=== PATIENT | male | born 1955 | race Two or more races ===

== ENCOUNTER 2016-08-18 15:22 | Inpatient (IN) | payer MEDICAID ==
[~2016-08-18] VITALS: Ht 185.4 cm; Wt 93.7 kg
[2016-08-18 16:35] LABS: Basophils # (auto) 0 uL; Basophils % (auto) 0.5 % (0.0-2.0); CONDITION Y; DEFINITIVE SEE PRINTOUT; Eosinophils # (auto) 0.1 uL; Eosinophils % (auto) 0.5 % (0.0-7.0); Hematocrit 54.2 % (41.0-53.0); Hemoglobin 18.4 g/dL (13.5-17.5); Lymphocytes # (auto) 1.5 uL; Lymphocytes % (auto) 14.9 % (10.0-50.0); Mean Corpuscular Hemoglobin 29.5 pg (28.0-32.0); Mean Corpuscular Volume 86.7 fL (80.0-100.0); Monocytes # (auto) 0.5 uL; Monocytes % (auto) 4.9 % (0.0-12.0); Neutrophils # (auto) 7.9 uL; Neutrophils % (auto) 79.2 % (37.0-80.0); Platelet Count (auto) 212 10^3/uL (140-450); Red Cell Distribution Width 13.9 % (11.6-16.0); White Blood Cell 9.9 10^3/uL (4.4-10.8)
[2016-08-18 16:48] LABS: Albumin 3.8 g/dL (3.4-5.0); BUN/Creatinine Ratio 13.1; Calcium 8.4 mg/dL (8.5-10.1)
[2016-08-18 16:53] LABS: Bilirubin, Total 0.8 mg/dL (0.2-1.0); Total Protein 7.9 g/dL (6.4-8.2)
[2016-08-18] MEDS ORDERED: ONDANSETRON HCL 4 MG/2 ML VIAL IV ONE (17:15)
[2016-08-18] MEDS ORDERED: METOPROLOL TARTRATE 25 MG TAB PO ONE (17:15)
[2016-08-18] MEDS: NICARDIPINE 25MG/250ML BAG KIT 250 ML IV SCH ×2 (17:15→19:02)
[2016-08-18] MEDS ORDERED: MORPHINE SULF INJ 2 MG/ML SYRINGE 1ML IV PRN ×2 (19:15)
[2016-08-18] MEDS ORDERED: ONDANSETRON HCL 4 MG/2 ML VIAL IV PRN (19:15)
[2016-08-18] MEDS ORDERED: NITROGLYCERIN 0.4 MG SL TAB SL PRN ×2 (19:15)
[2016-08-18] MEDS ORDERED: LORazepam 0.5 MG TAB PO PRN (19:15)
[2016-08-18] MEDS ORDERED: ACETAMINOPHEN 325 MG TAB PO PRN (19:15)
[2016-08-18] MEDS ORDERED: ALUM & MAG HYDROX-SIMETH LIQ(MAALOX) 30 ML PO ONE (19:15)
[2016-08-18] MEDS ORDERED: ZOLPIDEM TARTRATE 5 MG TAB PO PRN (19:15)
[2016-08-18 19:57] LABS: B-Type Natriuretic Peptide 139.24 pg/mL (0-100)
[2016-08-18 20:07] LABS: Temperature: 23.7 C (20.0-25.0)
[2016-08-18] MEDS ORDERED: SODIUM CHLOR 0.9% PF (SALINE LOCK) 10ML VIAL IV SCH (22:00)
[2016-08-18] MEDS: SODIUM CHLOR 0.9% PF (SALINE LOCK) 10ML VIAL IV SCH (22:02)
[2016-08-18 22:28] LABS: Urine Bilirubin Negative (Negative); Urine Color Yellow (Yellow); Urine Glucose Normal (Normal); Urine Ketone Negative (Negative); Urine Mucus FEW (None Seen); Urine Nitrite Negative (Negative); Urine RBC 8 /hpf (0 - 3); Urine Squamous Epithelial Cell FEW /hpf (<5); Urine Urobilinogen Normal (Negative); Urine pH 5.5 (5.0-8.0)
[2016-08-18] MEDS: CARVEDILOL 3.125 MG TAB PO SCH (22:29)
[2016-08-18] MEDS: ENALAPRIL MALEATE 2.5 MG TAB PO SCH (22:30)
[2016-08-18] MEDS: ATORVASTATIN 20 MG TAB PO SCH (22:30)
[2016-08-18 22:32] LABS: Urine Blood 1+ /uL (Negative)
[2016-08-19] MEDS: NICARDIPINE 25MG/250ML BAG KIT 250 ML IV SCH (03:15)
[2016-08-19] MEDS: SODIUM CHLOR 0.9% PF (SALINE LOCK) 10ML VIAL IV SCH ×3 (06:01→21:28)
[2016-08-19 06:58] LABS: Basophils # (auto) 0 uL; Basophils % (auto) 0.2 % (0.0-2.0); CONDITION Y; Eosinophils # (auto) 0.1 uL; Eosinophils % (auto) 0.5 % (0.0-7.0); Hematocrit 49.7 % (41.0-53.0); Lymphocytes # (auto) 1.8 uL; Lymphocytes % (auto) 15.9 % (10.0-50.0); Mean Corpuscular Hemoglobin 29.7 pg (28.0-32.0); Mean Corpuscular Hgb Conc. 34.2 g/dL (32.0-36.0); Mean Platelet Volume 7.9 fL (7.4-10.4); Monocytes # (auto) 0.6 uL; Neutrophils # (auto) 8.9 uL; Neutrophils % (auto) 78.4 % (37.0-80.0); Platelet Count (auto) 244 10^3/uL (140-450); Red Cell Distribution Width 14.4 % (11.6-16.0); White Blood Cell 11.3 10^3/uL (4.4-10.8)
[2016-08-19 07:21] LABS: Albumin 3.2 g/dL (3.4-5.0); BUN/Creatinine Ratio 21.7; Bilirubin, Total 0.9 mg/dL (0.2-1.0); Calcium 8.5 mg/dL (8.5-10.1); Magnesium 2.8 mg/dL (1.6-2.6); Potassium 4.1 mmol/L (3.5-5.1); Total Protein 6.7 g/dL (6.4-8.2)
[2016-08-19] MEDS ORDERED: cefTRIAXone 1GM/50ML D5W 50 ML IV ONE (08:00)
[2016-08-19 09:07] VITALS: BP 153/95
[2016-08-19] MEDS ORDERED: CLOPIDOGREL BISULFATE 75 MG TAB PO SCH (10:00)
[2016-08-19] MEDS: ASPirin 81 mg TAB PO SCH (10:00)
[2016-08-19] MEDS: CARVEDILOL 3.125 MG TAB PO SCH ×2 (10:00→21:29)
[2016-08-19] MEDS: ENALAPRIL MALEATE 2.5 MG TAB PO SCH ×2 (10:00→21:30)
[2016-08-19] MEDS: DOCUSATE SOD 100 MG CAP PO SCH (10:00)
[2016-08-19 14:58] VITALS: BP 165/112
[2016-08-19 17:30] VITALS: BP 142/92
[2016-08-19 20:00] VITALS: BP 139/84
[2016-08-19] MEDS: ATORVASTATIN 20 MG TAB PO SCH (21:29)
[2016-08-19 22:00] VITALS: BP 139/84
[2016-08-20 05:00] VITALS: BP 141/92
[2016-08-20 05:32] LABS: Basophils # (auto) 0.1 uL; Basophils % (auto) 0.5 % (0.0-2.0); CONDITION Y; Eosinophils # (auto) 0.1 uL; Eosinophils % (auto) 1.1 % (0.0-7.0); Hematocrit 48.8 % (41.0-53.0); Hemoglobin 16.4 g/dL (13.5-17.5); Lymphocytes # (auto) 2.6 uL; Lymphocytes % (auto) 24.4 % (10.0-50.0); Mean Corpuscular Hemoglobin 29.6 pg (28.0-32.0); Mean Corpuscular Hgb Conc. 33.7 g/dL (32.0-36.0); Mean Corpuscular Volume 87.8 fL (80.0-100.0); Mean Platelet Volume 8.1 fL (7.4-10.4); Monocytes # (auto) 0.5 uL; Monocytes % (auto) 5.1 % (0.0-12.0); Neutrophils # (auto) 7.3 uL; Neutrophils % (auto) 68.9 % (37.0-80.0); Platelet Count (auto) 198 10^3/uL (140-450); Red Cell Distribution Width 14.1 % (11.6-16.0); White Blood Cell 10.6 10^3/uL (4.4-10.8)
[2016-08-20 05:53] LABS: BUN/Creatinine Ratio 24.5; Calcium 8.1 mg/dL (8.5-10.1); Potassium 3.9 mmol/L (3.5-5.1)
[2016-08-20] MEDS: SODIUM CHLOR 0.9% PF (SALINE LOCK) 10ML VIAL IV SCH ×3 (06:00→21:49)
[2016-08-20 08:00] VITALS: BP 137/85
[2016-08-20] MEDS: cefTRIAXone 1GM/50ML D5W 50 ML IV SCH (09:42)
[2016-08-20] MEDS: ENALAPRIL MALEATE 2.5 MG TAB PO SCH (09:43)
[2016-08-20] MEDS: ASPirin 81 mg TAB PO SCH (09:44)
[2016-08-20] MEDS: DOCUSATE SOD 100 MG CAP PO SCH (09:44)
[2016-08-20] MEDS: CARVEDILOL 3.125 MG TAB PO SCH ×2 (09:47→21:47)
[2016-08-20 10:06] VITALS: BP 137/85
[2016-08-20 15:48] LABS: Urine Bilirubin Negative (Negative); Urine Blood TRACE /uL (Negative); Urine Color Yellow (Yellow); Urine Glucose Normal (Normal); Urine Ketone Negative (Negative); Urine Nitrite Negative (Negative); Urine RBC 22 /hpf (0 - 3); Urine Squamous Epithelial Cell FEW /hpf (<5); Urine Urobilinogen Normal (Negative)
[2016-08-20] MEDS ORDERED: LISINOPRIL 20 MG TAB PO ONE (17:15)
[2016-08-20 17:38] VITALS: BP 187/124
[2016-08-20] MEDS ORDERED: hydrALAZINE HCL 20 MG/ML VL IV PRN (19:15)
[2016-08-20] MEDS: amLODIPine BESYLATE 5 MG TAB PO SCH (19:30)
[2016-08-20 20:00] VITALS: BP 173/115
[2016-08-20] MEDS: ATORVASTATIN 20 MG TAB PO SCH (21:48)
[2016-08-20 22:00] VITALS: BP 173/115
[2016-08-21 05:00] VITALS: BP 148/103
[2016-08-21] MEDS: SODIUM CHLOR 0.9% PF (SALINE LOCK) 10ML VIAL IV SCH (06:00)
[2016-08-21 09:00] VITALS: BP 156/115
[2016-08-21] MEDS: cefTRIAXone 1GM/50ML D5W 50 ML IV SCH (09:31)
[2016-08-21] MEDS: amLODIPine BESYLATE 5 MG TAB PO SCH (09:32)
[2016-08-21] MEDS: ASPirin 81 mg TAB PO SCH (09:33)
[2016-08-21] MEDS: DOCUSATE SOD 100 MG CAP PO SCH (09:33)
[2016-08-21] MEDS: CARVEDILOL 3.125 MG TAB PO SCH (09:33)
[2016-08-21] MEDS ORDERED: LISINOPRIL 10 MG TAB PO SCH (10:00)
[2016-08-21] MEDS ORDERED: HCTZ 25 MG TAB PO ONE (11:45)
[2016-08-21] MEDS ORDERED: amLODIPine BESYLATE 5 MG TAB PO ONE (11:45)
[2016-08-21 13:00] VITALS: BP 138/93
[2016-08-22] MEDS ORDERED: amLODIPine BESYLATE 5 MG TAB PO SCH (10:00)
[2016-08-22] MEDS ORDERED: LISINOPRIL 10 MG TAB PO SCH (10:00)
[2016-08-22] MEDS ORDERED: HCTZ 25 MG TAB PO SCH (10:00)
== END 2016-08-21 14:00 | disposition left against medical advice (07) | DRG 468 ==
LOC: ER 15:29 → TELE 15:30 → TELE-WESTW 08-19 14:18
PROVIDERS: ADMIT Internal Medicine; ATTEND Internal Medicine
DX: I12.9 Hypertensive chronic kidney disease with stage 1 through stage 4 chronic kidney disease, or unspecified chronic kidney disease (principal); J96.01 Acute respiratory failure with hypoxia; N17.0 Acute kidney failure with tubular necrosis; N18.3 Chronic kidney disease, stage 3 (moderate); F19.10 Other psychoactive substance abuse, uncomplicated; I16.9 Hypertensive crisis, unspecified; E78.5 Hyperlipidemia, unspecified; N39.0 Urinary tract infection, site not specified; Z82.49 Family history of ischemic heart disease and other diseases of the circulatory system; Z91.19 Patient's noncompliance with other medical treatment and regimen; Z71.89 Other specified counseling; Z71.6 Tobacco abuse counseling
CPT/HCPCS: 36415; 70450; 71010; 74176; 80048; 80053; 80061; 80307; 81001; 82962; 83735; 83880; 84443; 84484; 85025; 85379; 87086; 93005; 93306; 96374; 99291; J0696; J2405